=== PATIENT | female | born 1960 | race Caucasian/White ===

== ENCOUNTER 2019-11-15 08:08 | Emergency (ER) | payer SELFPAY ==
[2019-11-15 08:20] VITALS: BP 165/96; PULSE 94; RESP 20; TEMP 36.9; O2SAT 98
--- NOTE | 2019-11-15 08:30 | ED.URI ---
HPI - URI/Sore Throat General Chief Complaint: Upper Respiratory Infection Stated Complaint: flu like symptoms Time Seen by Provider: 11/15/19 08:30 Source: patient and RN notes reviewed Mode of arrival: ambulatory Limitations: no limitations History of Present Illness HPI Narrative: A 59 y/o female presents to the ED with a fever for the past 4 days. She states that her fever has been between 101-102. She reports an associated productive cough and nasal congestion. She denies anything aggravating or alleviating her symptoms. She also denies any N/V/D or ABD pain. MD elicited complaint: fever (101-102) Onset (ago): day(s) (4) Exacerbating factors: nothing Relieving factors: nothing Associated symptoms: nasal congestion and cough (productive) Related Data Allergies Allergy/AdvReac Type Severity Reaction Status Date / Time SHELLFISH Allergy Unknown Unknown Uncoded 11/15/19 08:33 Review of Systems Review of Systems: All systems reviewed & are unremarkable except as noted in HPI and below Constitutional: Constitutional: Reports fever(s) (101-102) ENT: Reports nasal congestion Respiratory: Respiratory: Reports cough (productive) Gastrointestinal: Gastrointestinal: Denies abdominal pain, Denies diarrhea, Denies nausea and Denies vomiting PMFSH Past Medical History Medical History (Updated 11/15/19 @ 09:14 by Naldo Franco MD) Hx of breast cancer Surgical History Surgical History (Updated 11/15/19 @ 08:40 by Seven Josue) History of hysterectomy History of tonsillectomy Previous section Social History Social History (Updated 11/15/19 @ 08:40 by Seven Josue) Smoking packs per day: 1 Smoking cigarettes per day: 20.0 Smoking status: Current every day smoker Exam Narrative: Exam Narrative: GENERAL: Well-appearing, well-nourished, and in no acute distress. HEAD: Normocephalic, atraumatic. EYES: PERRLA and EOMI. ENT: Nares clear, Mucous membranes moist. NECK: Supple. CHEST: No respiratory distress. coarse breath sounds , bilaterally HEART: Regular rate and rhythm. No murmur heard. Normal peripheral pulses. ABDOMEN: Soft, non tender, non distended, normal active bowel sounds. EXTREMITIES: Normal range of motion. No edema. SKIN: Warm, dry, no rash. NEURO: No focal deficits. Alert and oriented x3. PSYCH: Normal mood and affect. Course Course Emergency Course: Inform patient about her lab work. Advised her to drink plenty of fluids take Tylenol ibuprofen for fever and body aches. Consider to quit smoking. Take medication as prescribed for cough. Vital Signs Vital signs: Vital Signs Temperature 36.9 C 11/15/19 08:20 Pulse Rate 94 11/15/19 08:20 Respiratory Rate 20 11/15/19 08:20 Blood Pressure 165/96 H 11/15/19 08:20 Pulse Oximetry 98 11/15/19 08:20 Temperature 36.9 C 11/15/19 08:20 Pulse Rate 94 11/15/19 08:20 Respiratory Rate 20 11/15/19 08:20 Blood Pressure 165/96 H 11/15/19 08:20 Pulse Oximetry 98 11/15/19 08:20 MDM - URI/Sore Throat Lab Data Labs: Influenza A Screen Positive Reference Range: Negative Influenza B Screen Negative Reference Range: Negative Discharge Plan Discharge Clinical Impression: Influenza Patient Disposition: Home, Self-Care Condition: Stable Instructions: Influenza (ED) Prescriptions: New prednisone 20 mg tablet 20 mg PO BID Qty: 10 RF: 0 benzonatate [Tessalon Perles] 100 mg capsule 100 mg PO BID Qty: 14 RF: 0 Follow-up/Referrals: UNKNOWN,DOCTOR [Primary Care Provider] - Candi Escobar MD [Physician] - Time of Disposition: 09:15
[2019-11-15 09:14] VITALS: BP 148/91; PULSE 87; RESP 20; O2SAT 97
[2019-11-15 09:25] VITALS: BP 155/85; PULSE 86; RESP 20; O2SAT 97
== END 2019-11-15 09:27 | disposition home or self-care (01) ==
PROVIDERS: Emergency Provider Family Medicine
DX: J10.1 Influenza due to other identified influenza virus with other respiratory manifestations (principal); F17.210 Nicotine dependence, cigarettes, uncomplicated; Z85.3 Personal history of malignant neoplasm of breast
CPT/HCPCS: 87804; 99283

== ENCOUNTER 2020-11-26 14:18 | Emergency (ER) | payer OTHER, SELFPAY ==
[2020-11-26] VITALS (7 sets, daily range): BP systolic 153–204; BP diastolic 82–102; PULSE 71–81; RESP 15–20; TEMP 36.5; O2SAT 97–100
--- NOTE | ~2020-11-26 | CT_ITS ---
EXAMINATION: CT brain wo con INDICATION: Confusion COMPARISON: None TECHNIQUE: Standard unenhanced head CT. The dose-length product (DLP) was 605.33 mGy-cm. The mA was a djusted according to patient size. Iterative reconstruction technique was employed. FINDINGS: There is no acute intraparenchymal hemorrhage. There is a large area of hypoattenuation in the right frontal and parietal white matter. There are some areas of loss of vuong-white differentiati on but this is less than expected given the extent of the white matter hypoattenuation. There are cecy roximately 2 mm of qekix-zk-skcl midline shift. There is mild prominence of the sulci and ventricles related to cerebral atrophy. Intracranial calcified cerebral atherosclerosis is noted. There are no e xtra-axial collections. The orbits and soft tissues are unremarkable. The visualized sinuses and mas toid air cells are well aerated. IMPRESSION: 1. Hypoattenuation in the white matter of the right frontal and parietal lobes somewhat disproportion ate to the loss of vuong-white differentiation. Findings could be due to underlying mass or possibly s ubacute infarction. Would recommend further evaluation by MRI without and with contrast. These findin gs and recommendations were discussed with Andreina Cui PA-C in the Emergency Department at 1632 hours on 11/26/2020. Reviewed, dictated and finalized at location A. IC ASSISTANT IMPRESSION: 1. Hypoattenuation in the white matter of the right frontal and parietal lobes somewhat disproportionate to the loss of vuong-white differentiation. Findings c ould be due to underlying mass or possibly subacute infarction. Would recommend further evaluation by MRI without and with contrast. These findings and recomm endations were discussed with Andreina Cui PA-C in the Emergency Department at 1632 hours on 11/26/2020.
--- NOTE | 2020-11-26 14:38 | ED.DENTAL ---
HPI - Dental/Oral General Chief complaint: Dental/Oral <LASHON Villasenor Last Filed: 11/26/20 17:23> Stated complaint: severe facial pain after tooth pulled <LASHON Villasenor Last Filed: 11/26/20 17:23> Time Seen by Provider: 11/26/20 14:27 <Andreina Cui PA-C - Last Filed: 11/26/20 17:23> Source: patient <LASHON Villasenor Last Filed: 11/26/20 17:23> Mode of arrival: EMS <LASHON Villasenor Last Filed: 11/26/20 17:23> Limitations: no limitations <LASHON Villasenor Last Filed: 11/26/20 17:23> History of Present Illness HPI Narrative: This is a 60 year old female that presents to the ER for toothache today. Reports she had been having trouble with a tooth for a couple of weeks. Reports she had that tooth pulled 8 days ago. Reports the tooth next to the one that was pulled has now started bothering her. Reports she is currently on an antibiotic and is taking it as prescribed. Reports she has an appointment to follow back up with the dentist tomorrow. <Andreina Cui PA-C - Last Filed: 11/26/20 17:23> MD Complaint: tooth pain <Andreina Cui PA-C - Last Filed: 11/26/20 17:23> Location: Tooth # (4) <LASHON Villasenor Last Filed: 11/26/20 17:23> Related Data Allergies/adverse reactions: Allergies Allergy/AdvReac Type Severity Reaction Status Date / Time shellfish derived Allergy Verified 11/26/20 17:08 SHELLFISH Allergy Unknown Unknown Uncoded 11/26/20 14:29 <LASHON Villasenor Last Filed: 11/26/20 17:23> Review of Systems Review of Systems: Narrative: CONSTITUTIONAL: Denies fever ENT: Reports dentalgia <LASHON Villasenor Last Filed: 11/26/20 17:23> All systems reviewed & are unremarkable except as noted in HPI and below <Andreina Cui PA-C - Last Filed: 11/26/20 17:23> PMFSH Past Medical History Medical History: Medical History (Updated 11/26/20 @ 22:03 by Faith Mendoza MD) Hx of breast cancer <Andreina Cui PA-C - Last Filed: 11/26/20 17:23> Surgical History Surgical History: Surgical History (Updated 11/15/19 @ 08:40 by Seven Josue) History of hysterectomy History of tonsillectomy Previous section <Andreina Cui PA-C - Last Filed: 11/26/20 17:23> Social History Social History: Social History (Updated 11/15/19 @ 08:40 by Seven Josue) Smoking packs per day: 1 Smoking cigarettes per day: 20.0 Smoking status: Current every day smoker <Andreina Cui PA-C - Last Filed: 11/26/20 17:23> Exam Narrative: Exam Narrative: GENERAL: Well-appearing, well-nourished, and in no acute distress. HEAD: Normocephalic, atraumatic. EYES: EOMI. ENT:Mucous membranes moist. Oropharynx without tonsillar hypertrophy exudate or other lesions. Bilateral TMs pearly vuong non-bulging. Poor dentition. Tooth #4 tender to palpation: no surrounding edema, erythema or fluctuance to suggest abscess. Area of recent dental extraction appears well-healing without erythema or edema NECK: Supple. No adenopathy or masses. CHEST: Airway patent HEART: Regular rate and rhythm EXTREMITIES: Normal range of motion. No edema. SKIN: Warm, dry, no rash. NEURO: No focal deficits. Alert and oriented x3. PSYCH: Normal mood and affect <Andreina Cui PA-C - Last Filed: 11/26/20 17:23> Course [employer]/PA Physician Supervision For this patient encounter, I reviewed the [employer] or PA documentation, treatment plan, and medical decision making; and I had [id number] time with this patient. Patient complains of right facial pain and headache for last 2-3 weeks. She states that she has some difficulty with perception. Sister noticed that her eyes were looking to the left. Exam reveals NAD, motor strength 5/5 all 4 extremities. Plans transfer to tertiary care center for further evaluation. <Faith Mendoza MD - Last Filed: 11/26/20 22:03> Vital Signs Vital signs: Vital Signs Temperature 36.5
[2020-11-26] MEDS: KETOROLAC 30 MG/ML VIAL (*BKC) IV PUSH (14:47)
--- NOTE | 2020-11-26 15:50 | PC.NURSE ---
Per sister at bedside, pt is not acting like herself , pt body is tense, rigid. Pt is staring off to left side and able to focus when asked. Pt states I just dont feel right, Im scared I will fall. Andreina OATES notified and at bedside to reassess pt. Discussing POC at this time.
--- NOTE | 2020-11-26 16:06 | PC.NURSE ---
Pt to CT scan via stretcher at this time, pt on tele monitor. Sister at bedside.
[2020-11-26 16:35] LABS: Basophils Absolute Auto 0.1 K/mm3 (0.0-0.1); Basophils Percent Auto 0.6 % (0.2-1.2); Eosinophils Percent Auto 0.1 % (0-4.4); Hematocrit 49.1 % (37.0-47.0); Hemoglobin 17.2 g/dL (12.0-15.0); Immature Granulocyte Absolute 0.03 K/mm3 (0.00-0.031); Immature Granulocyte Percent A 0.4 % (0-0.5); Lymphocytes Absolute Auto 1.16 K/mm3 (0.9-3.2); Lymphocytes Percent Auto 14.1 % (18.3-44.2); Mean Corpuscular Hemoglobin 31.7 pg (26-34); Mean Corpuscular Volume 90.6 fl (80-100); Mean Platelet Volume 8.8 fl (7.4-10.4); Monocytes Absolute Auto 0.5 K/mm3 (0.1-0.6); Monocytes Percent Auto 6.3 % (2.6-8.5); Neutrophils Absolute Auto 6.5 K/mm3 (1.3-6.7); Neutrophils Percent Auto 78.5 % (45.5-73.1); Platelet Count Result 349 k/mm3 (150-375); Red Blood Count 5.42 M/mm3 (4.2-5.4); Red Cell Distribution Width 14.5 % (11.5-14.5); White Blood Count 8.2 K/mm3 (4.5-10.0)
[2020-11-26] MEDS: LABETALOL HCL INJ 100 MG/20 ML VIAL 20 MG IV PUSH (16:42)
[2020-11-26 16:46] LABS: INR 0.8; Prothrombin Time 12.1 Seconds (11.1-14.7)
[2020-11-26 16:47] LABS: Partial Thromboplastin Time 22.5 SECONDS (22.3-36.8)
[2020-11-26 16:48] LABS: Ethanol < 10 mg/dL (<10)
[2020-11-26 16:49] LABS: Alanine Aminotransferase 33 U/L (4-35); Albumin Level 4.2 g/dL (3.5-5.1); Alkaline Phosphatase 169 U/L (38-126); Anion Gap 7 mmol/L (8-16); Aspartate Amino Transferase 61 U/L (14-36); Bilirubin,Total 0.4 mg/dL (0.2-1.3); Blood Urea Nitrogen 6 mg/dL (7-17); Calcium 9.1 mg/dL (8.4-10.2); Carbon Dioxide 31 mmol/L (22-30); Chloride 93 mmol/L (98-107); Estimated CRCL calculation 97 ml/min; Estimated Glomerular Filt Rate > 60; Glucose 125 mg/dL (65-105); Potassium 2.8 mmol/L (3.4-5.0); Sodium 131 mmol/L (137-145)
[2020-11-26 16:49] LABS: Add Urine Microscopic? YES; Appearance Urine Clear (Clear); Bilirubin Urine Negative (Negative); Blood Urine Negative (Negative); Color Urine Yellow (Yellow); Glucose Urine UA Negative (Negative); Ketones Urine Negative (Negative); Leukocyte Esterase Ur Negative LEU/UL (Negative); Mucus Urine Rare /lpf; Nitrate Urine Negative (Negative); Protein Urine 1+ mg/dL (Negative); RBC Urine 0-2 /hpf (0-2); Specific Grav Ur 1.016 (1.001-1.035); Urobilinogen Urine Negative mg/dL (<2.0); WBC Urine 0-3 /hpf
[2020-11-26] MEDS: LORazepam INJ (*CRX) 2 MG/ML VIAL IV PUSH (16:53)
[2020-11-26] MEDS: SODIUM CHLORIDE 0.9% IV 1,000 ML 999 ML IV CONT (16:53)
[2020-11-26 17:03] LABS: Amphetamine Screen Urine Negative (Negative); Barbiturate Screen Urine Negative (Negative); Benzodiazepines Screen Urine Negative (Negative); Cannabinoid Screen Urine Negative (Negative); Cocaine Screen Urine Negative (Negative); Methadone Screen Urine Negative (Negative); Opiate Screen Urine Positive (Negative); Phencyclidine Screen Urine Negative (Negative)
== END 2020-11-26 19:11 | disposition short-term general hospital (02) ==
PROVIDERS: Physician Assistant; Emergency Provider Emergency Medicine; PCP Internal Medicine
DX: K08.89 Other specified disorders of teeth and supporting structures (principal); E87.6 Hypokalemia; R93.0 Abnormal findings on diagnostic imaging of skull and head, not elsewhere classified; Z85.3 Personal history of malignant neoplasm of breast; F17.210 Nicotine dependence, cigarettes, uncomplicated
CPT/HCPCS: 36415; 51701; 70450; 80053; 80307; 81001; 84443; 85025; 85610; 85730; 96361; 96365; 96367; 96375; 99285; J0131; J1885; J2060; J3480; J7030

== ENCOUNTER 2021-01-16 11:26 | Outpatient (CLI) | payer OTHER, SELFPAY ==
--- NOTE | ~2021-01-16 | XR_ITS ---
XR chest 2V DATE: 01/16/2021 11:48 INDICATION: New treatment for lung cancer. Radiation. TECHNIQUE: PA and lateral views COMPARISON: None FINDINGS: Bilateral hyperinflation. There is triangular increased density at the right medial lung base, suggesting right lower lobe atel ectasis/consolidation. No other pulmonary infiltrate or consolidation. Bilateral hyperinflation, suggesting COPD. Normal heart size. No hilar or mediastinal enlargement. Aortic arch calcification. Callus at posterolateral left ninth rib, apparently a subacute or old rib fracture. IMPRESSION: Suggestion of right lower lobe atelectasis and/or consolidation; endobronchial obstructio n is not excluded. Consider CT thorax examination. COPD Reviewed, dictated and finalized at location A. IMPRESSION: Suggestion of right lower lobe atelectasis and/or consolidation; en dobronchial obstruction is not excluded. Consider CT thorax examination. COPD
== END 2021-01-16 11:27 | disposition home or self-care (01) ==
PROVIDERS: PCP Internal Medicine; Visit Provider Clinical Nurse Specialist
DX: J44.9 Chronic obstructive pulmonary disease, unspecified (principal)
CPT/HCPCS: 71046